=== PATIENT | male | born 1990 | race Caucasian/White ===

== ENCOUNTER 2023-10-05 08:36 | Emergency (ER) | payer MEDICAID, SELFPAY ==
--- NOTE | ~2023-10-05 | CT_ITS ---
EXAMINATION: CT FACIAL BONES WITH CONTRAST CLINICAL INFORMATION: Swelling and pain. COMPARISON: None available. TECHNIQUE: Thin section axial imaging with sagittal coronal reformats are obtained. 100 mL IV contrast Omnipaque [address] examination was performed using dose optimization techniques as appropriate, variously including the following: *Automated exposure control *Adjustment of mA and/or kV according to patient size (this includes techniques or standardized protocols for targeted exams where dose is matched to indication/reason for exam; i.e. extremities or head) *Use of iterative reconstruction technique DLP: 319 mGy-cm FINDINGS: There is normal contrast enhancement, in the region of the [place] and base of the brain and within the great vessels of the neck. Symmetry is observed, in the parapharyngeal spaces, and at the base of the tongue, and region of the epiglottis and visualized focal cords. The parotid and submandibular glands are symmetric but there are a few small lymph nodes present, near the right angle of the mandible, measuring up to 9 mm in the more inferior more prominent node at 9 x 16 mm. The zygomatic arches, and mandible are intact, minus some areas of resorption, around the central and left molar dentition. The retrobulbar regions are intact. The orbits are unremarkable in appearance. There is mucoperiosteal thickening in left frontal sinus and left ethmoid sinus with slight thickening of the left infundibulum. Right frontal sinus clear. There is mild mucosal thickening in the right ethmoid sinus and compromise to the right infundibulum. There is moderate circumferential mucoperiosteal thickening in the maxillary sinuses right greater than left but fluid levels are not observed. Sphenoid sinuses clear. There is moderate bowing of the inferior nasal septum towards the right. CT/CT facial bones w IV con IMPRESSION: No acute findings although some prominent nodes are seen, in the submandibular region right greater than left, the largest node measuring approximately 9 x 16 mm. There is no evidence for swelling in the region of the left orbit as questioned.
[2023-10-05 08:42] VITALS: BP 117/60; PULSE 85; RESP 16; TEMP 36.7; O2SAT 98; BMI 25.8
[2023-10-05 09:04] LABS: MANUAL DIFF FLAG NO
[2023-10-05 09:07] LABS: Basophils Percent Auto 0.2 % (0-2); Hematocrit 43.7 % (42.0-52.0); Hemoglobin 14.8 g/dl (14.0-18.0); Imm Gran Abs Auto 0.03 X10*3/uL (0.00-0.03); Imm Gran Pct Auto 0.3 % (0.0-0.4); Lymphocytes Absolute Auto 1.8 X10*3/uL (1.2-4.9); Lymphocytes Percent Auto 19.8 % (20-40); Mean Corpuscular HGB Conc 33.9 g/dl (31.0-36.0); Mean Corpuscular Volume 88.5 fL (80.0-98.0); Mean Platelet Volume 10.9 fL (9.4-12.4); Monocytes Absolute Auto 0.4 X10*3/uL (0.1-1.2); Monocytes Percent Auto 4.7 % (2-11); Neutrophils Absolute Auto 6.8 x10*3/uL (2.0-8.3); Platelet Count 211 X10*3/uL (160-400); Red Blood Count 4.94 X10*6/uL (4.60-5.80); Red Cell Distribution Width 12.9 % (11.0-16.0); White Blood Count 9.1 X10*3/uL (4.8-10.8)
[2023-10-05 09:19] LABS: Lactic Acid 1.5 mmol/L (0.5-2.0)
[2023-10-05 09:24] LABS: Anion Gap 12 (12-20); Blood Urea Nitrogen 9 mg/dL (9-16); Calcium 9.4 mg/dL (8.4-10.2); Carbon Dioxide 27 mmol/L (22-29); Chloride 107 mmol/L (96-108); Creatinine Clr Calc Pharmacy 129.9; Estimated Glomerular Filt Rate > 60; Glucose Random 93 mg/dL (60-115); Sodium 142 mmol/L (135-145)
--- NOTE | 2023-10-05 09:27 | ED_ITS ---
HPI - General Adult General Chief complaint: Eye Problems Stated complaint: Dental infection/Fever/SOB Time Seen by Provider: 10/05/23 09:12 Source: patient Mode of arrival: ambulatory Limitations: no limitations History of Present Illness ED Provider: Nara Pan PA-C HPI narrative: 33 yo male with history significant for sepsis, jaw infection, ongoing dental abscess, and recent eye laceration extending from his left to right eye, presents today with 4 days of left eye swelling and pain. The patient states he first noticed bilateral jaw swelling 4 days ago, prompting him to start clindamycin prescribed by his dentist. Tooth extraction scheduled for October 20. At this same time, he noted pain and swelling of left eye. He denies recent trauma to the left eye. Describes 3-4 weeks ago he sustained a laceration from a tree branch, injuring both eyes. 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 Patient describes left eye requiring a fake membrane for healing and steroid eye drops. He states he had complete resolution of eye pain and redness at that time. He endorses associated blurred vision of left eye, subjective fever, chest pain, cough, and shortness of breath. He describes feeling mucous running from head through abdomen, causing the discomfort. MD complaint: Left eye pain and edema Onset (ago): day(s) (x4 days) Location: eyes (Left eye) Associated symptoms: chest pain, cough and shortness of breath Treatments prior to arrival: other (Steroid eye drops) Related Data Previous Rx's ?Medication ?Instructions ?Recorded amoxicillin 875 mg-potassium 1 tab PO BID #14 tabs 10/05/23 clavulanate 125 mg tablet erythromycin 5 mg/gram (0.5 %) eye 0.5 inch ophthalmic (eye) BID #3.5 10/05/23 ointment grams Allergies Allergy/AdvReac Type Severity Reaction Status Date / Time No Known Allergies Allergy Verified 10/05/23 08:43 Review of Systems 2 Review of Systems: Yes all other systems are reviewed and are negative PMFSH Social History Social History Advance Directives: No Advance Directives Information Provided: No Physical Exam ED Vital Signs: Vital Signs - 24 hr 10/05/23 08:42 10/05/23 13:44 Temperature 98.1 F 98.1 F Pulse Rate 85 57 Respiratory Rate 16 16 Blood Pressure 117/60 119/75 Pulse Oximetry 98 98 Oxygen Delivery Method Room Air Room Air BMI result Body Mass Index 25.8 Appearance: Alert. Oriented X3. No acute distress. Head: normocephalic, atraumatic. Eyes: Edema of left eyelid. Conjunctival injection of left eye. Pain with EOM. ENT: Pharynx normal. No tonsillar swelling or exudate. Neck: Right submandibular lymph node edema. CVS: Normal heart rate and rhythm. Pulses normal. Respiratory: No respiratory distress. Breath sounds normal. Abdomen: Soft and nontender. Skin: Skin warm and dry. Normal skin color. Normal skin turgor. No rashes. Extremities: No lower extremity edema. No joint swelling. Neuro/psych: Oriented X 3. No motor deficit. No sensory deficit. CN II-XII intact. Normal speech and cognition. Medications Administered Discontinued Medications Generic Name Dose Route Start Last Admin Trade Name Freq PRN Reason Stop Dose Admin Fluorescein Sodium 1 strip 10/05/23 09:35 10/05/23 10:01 Fluorescein Sodium Strip EYE-LEFT 10/05/23 09:36 1 strip ONCE ONE Administration Iohexol 100 ml 10/05/23 09:45 10/05/23 09:45 Iohexol 350 Mg/Ml 100 Ml Infus..Btl IV 10/05/23 09:46 85 ml ONCE ONE Administration Tetracaine HCl 1 drop 10/05/23 09:35 10/05/23 10:01 Tetracaine Hcl/Pf 0.5% Oph Sofie 4 Ml Drops EYE-LEFT 10/05/23 09:36 1 drop ONCE ONE Administration Medical Decision Making Medical Decision Making [facility] Narrative: 33 yo male with history significant for sepsis, jaw infection, ongoing dental abscess, and recent eye laceration extending from his left to right eye, presents today with 4 days of left eye swelling and pain. HPI and physical exam as noted above. Eye exam consistent with a corneal abrasion and diffuse injection, conjunctivitis.Vitals stable. Laboratory results unremarkable. No leukocytosis. Facial CT done given patient's history. CT showed no findings consistent with a deep infection. His exam and clinical presentation is most consistent with a corneal abrasion and conjunctivitis. He is already on clindamycin for dental infection. Will add Augmentin as well as topical erythromycin. He lives in [facility] and has an eye doctor and dentist there. He goes back there in a couple of days. He was encouraged follow-up with his eye doctor for re-evaluation as soon as possible. Differential Diagnosis Differential Diagnoses: The differential diagnosis associated with the presentation includes Corneal abrasion, conjunctivitis, orbital cellulitis, and preseptal cellulitis. Low suspision for orbital or preseptal cellulitis. Admission/Observation Consideration of admission/observation: Escalation of care including admission/observation considered Lab Data MDM Lab Attestation statement: I reviewed the patient's lab results. Laboratory results unremarkable. No leukocytosis. 10/05/23 09:00 10/05/23 09:00 Labs: Lab Results 10/05/23 Range/Units 09:00 WBC 9.1 (4.8-10.8) X10*3/uL RBC 4.94 (4.60-5.80) X10*6/uL Hgb 14.8 (14.0-18.0) g/dl Hct 43.7 (42.0-52.0) % MCV 88.5 (80.0-98.0) fL MCH 30.0 (27.0-33.0) pg MCHC 33.9 (31.0-36.0) g/dl RDW 12.9 (11.0-16.0) % Plt Count 211 (160-400) X10*3/uL MPV 10.9 (9.4-12.4) fL Immature Gran % (Auto) 0.3 (0.0-0.4) % Neut % (Auto) 75.0 H (45-73) % Lymph % (Auto) 19.8 L (20-40) % [place] % (Auto) 4.7 (2-11) % Eos % (Auto) 0.0 (0-4) % Baso % (Auto) 0.2 (0-2) % Lymph # (Auto) 1.8 (1.2-4.9) X10*3/uL [place] # (Auto) 0.4 (0.1-1.2) X10*3/uL Eos # (Auto) 0.0 (0.0-0.4) X10*3/uL Baso # (Auto) 0.0 (0.0-0.2) X10*3/uL Abs Immat Gran (auto) 0.03 (0.00-0.03) X10*3/uL Absolute Neuts (auto) 6.8 (2.0-8.3) x10*3/uL Absolute Nucleated RBC 0.000 (0.0-0.012) X10*3/uL Nucleated RBC % (auto) 0.0 (0.0-0.2) /100WBC Sodium 142 (135-145) mmol/L Potassium 4.0 (3.3-5.1) mmol/L Chloride 107 (96-108) mmol/L Carbon Dioxide 27 (22-29) mmol/L Anion Gap 12 (12-20) BUN 9 (9-16) mg/dL Creatinine 0.77 (0.5-1.4) mg/dL Estim Creat Clear Calc 129.9 Estimated GFR > 60 Random Glucose 93 (60-115) mg/dL Lactic Acid 1.5 (0.5-2.0) mmol/L Calcium 9.4 (8.4-10.2) mg/dL Independent Interpretation I performed an independent interpretation of an: CT Scan Interpretation: No swelling of the periorbital areas Radiology Impression Discussion of test interpretation with radiology: I have reviewed the radiologist's reading. Radiologist Impression: EXAMINATION: CT FACIAL BONES WITH CONTRAST CLINICAL INFORMATION: Swelling and pain. COMPARISON: None available. TECHNIQUE: Thin section axial imaging with sagittal coronal reformats are obtained. 100 mL IV contrast Omnipaque [address] examination was performed using dose optimization techniques as appropriate, variously including the following: *Automated exposure control *Adjustment of mA and/or kV according to patient size (this includes techniques or standardized protocols for targeted exams where dose is matched to indication/reason for exam; i.e. extremities or head) *Use of iterative reconstruction technique DLP: 319 mGy-cm FINDINGS: There is normal contrast enhancement, in the region of the [place] and base of the brain and within the great vessels of the neck. Symmetry is observed, in the parapharyngeal spaces, and at the base of the tongue, and region of the epiglottis and visualized focal cords. The parotid and submandibular glands are symmetric but there are a few small lymph nodes present, near the right angle of the mandible, measuring up to 9 mm in the more inferior more prominent node at 9 x 16 mm. The zygomatic arches, and mandible are intact, minus some areas of resorption, around the central and left molar dentition. The retrobulbar regions are intact. The orbits are unremarkable in appearance. There is mucoperiosteal thickening in left frontal sinus and left ethmoid sinus with slight thickening of the left infundibulum. Right frontal sinus clear. There is mild mucosal thickening in the right ethmoid sinus and compromise to the right infundibulum. There is moderate circumferential mucoperiosteal thickening in the maxillary sinuses right greater than left but fluid levels are not observed. Sphenoid sinuses clear. There is moderate bowing of the inferior nasal septum towards the right. CT/CT facial bones w IV con IMPRESSION: No acute findings although some prominent nodes are seen, in the submandibular region right greater than left, the largest node measuring approximately 9 x 16 mm. There is no evidence for swelling in the region of the left orbit as questioned. Prescription Management I considered prescription management with: Pain Medication and Antibiotic Critical Care Time Critical Care Time Critical Care Time: No Discharge Plan Discharge Clinical Impression: Corneal abrasion Qualifiers: Encounter type: initial encounter Laterality: left Qualified Code(s): S05.02XA - Injury of conjunctiva and corneal abrasion without foreign body, left eye, initial encounter Conjunctivitis Qualifiers: Conjunctivitis type: acute Acute conjunctivitis type: unspecified Laterality: l eft Qualified Code(s): H10.32 - Unspecified acute conjunctivitis, left eye Patient Disposition: Home, Self-Care Instructions: Corneal Abrasion (DC), Conjunctivitis (ED) Additional Instructions: Your lab workup today and vital signs were reassuring. There is no evidence of sepsis. Your CT scan did not show any evidence of deep infection to the structures of the eye. Your exam was consistent with an abrasion of your cornea. Use the topical antibiotic ointment as prescribed, 2 times a day for 1 week. Continue your previously prescribed clindamycin for dental infection. Start taking the prescribed Augmentin for additional bacterial coverage. It is important that you follow-up with an eye doctor as soon as possible. Follow-up with your dentist. Take Motrin and or Tylenol as needed for pain. Use cool compresses to the eye as needed for pain. Do your best to avoid rubbing or scratching the eye. If you develop new or worsening symptoms call 911 or come back to the ER for further evaluation. Prescriptions: New amoxicillin-pot clavulanate 875-125 mg tablet 1 tab PO BID Qty: 14 0RF erythromycin 5 mg/gram (0.5 %) ointment 0.5 inch ophthalmic (eye) BID Qty: 3.5 0RF Stand Alone Forms: Work/School Release Interventions: ED Discharge Assessment Last Done: 10/05/23 13:44 Discharge Date/Time: 10/05/23 13:44 Print Language: Guamanian
[2023-10-05] MEDS: iohexoL 350 MG/ML 100 ML INFUS..BTL IV (09:45)
[2023-10-05] MEDS: Fluorescein Sodium STRIP 1 STRIP EYE-LEFT (10:01)
[2023-10-05] MEDS: Tetracaine HCl/PF 0.5% Oph Sol 4 ML DROPS 1 DROP EYE-LEFT (10:01)
[2023-10-05 13:44] VITALS: BP 119/75; PULSE 57; RESP 16; TEMP 36.7; O2SAT 98
== END 2023-10-05 13:44 | disposition home or self-care (01) ==
PROVIDERS: Emergency Provider Emergency Medicine
DX: S05.02XA Injury of conjunctiva and corneal abrasion without foreign body, left eye, initial encounter (principal); H10.32 Unspecified acute conjunctivitis, left eye; W22.8XXA Striking against or struck by other objects, initial encounter; Y93.9 Activity, unspecified; Y92.9 Unspecified place or not applicable; Y99.9 Unspecified external cause status
CPT/HCPCS: 36415; 70487; 80048; 83605; 85025; 87040; 99283; 99284; Q9967